=== PATIENT | female | born 1975 | race Caucasian/White ===

== ENCOUNTER 2017-08-24 08:17 | Emergency (ER) | payer BC, MEDICAID ==
[~2017-08-24] VITALS: Ht 154.9 cm; Wt 58.0 kg
[~2017-08-24 08:17] MED LIST: ATEN-100 PO; CLOT1CRE TOP; LETR2.5T PO; PANT40IN3 PO; SUMA25TA2 PO; TETA1INJ4 IM
[2017-08-24 08:30] VITALS: BP 138/73; PULSE 76; RESP 16; TEMP 98.8; O2SAT 99
--- NOTE | 2017-08-24 09:29 | PD ---
HPI Chief Complaint: Fall Time Seen by Provider: 09:19 Travel History International Travel<30 days: No Contact w/Intl Traveler<30days: No Traveled to known affect area: No History of Present Illness HPI Patient presents with complaints of right back and rib pain. States she fell from a 6 foot ladder onto her right side 3 days ago while in [place]. No evaluation at that time. States she did hit her head on the fall with questionable LOC. Primarily complains of pain in the right scapular region. Aggravated with inspiration or range of motion of the right shoulder. Denies pain in the shoulder. Pain is 8 out of 10. PFSH Past Medical History Anxiety: Yes Depression: Yes Cancer: Yes (breast) Chemotherapy: Yes Diminished Hearing: No GERD: Yes Implanted Vascular Access Dvce: Yes (right subclavin ) Immunizations Current: No Radiation Therapy: Yes Influenza Vaccination: No ?: Not Menopausal: No Tubal Ligation: Yes Past Surgical History Gynecologic Surgery: Yes (left breast lumpectomy r/t cancer) Hysterectomy: Yes Tympanostomy Tube: Yes (x3 both ears) Other Surgery: Yes (LEFT BREAST CA WITH LYMPH NODE INVOLVEMENT,BREAST AUGMENTATION) Social History Alcohol Use: Yes (2 DRINKS PER NIGHT) Tobacco Use: Yes (1 PPD) Substance Use: No Allergies-Medications (Allergen,Severity, Reaction): Coded Allergies: hydrocodone (Unverified Allergy, Unknown, itching, 08/24/17) Reported Meds & Prescriptions Reported Meds & Active Scripts Active No Active Prescriptions or Reported Medications Review of Systems General / Constitutional: No: Fever Eyes: No: Visual changes HENT: No: Headaches Cardiovascular: No: Chest Pain or Discomfort Respiratory: No: Shortness of Breath Gastrointestinal: No: Abdominal Pain Genitourinary: No: Dysuria Musculoskeletal: Positive: Pain Skin: No Rash Neurologic: No: Weakness Psychiatric: No: Depression Endocrine: No: Polydipsia Hematologic/Lymphatic: No: Easy Bruising Physical Exam Narrative GENERAL: Well-nourished, well-developed patient. SKIN: Focused skin assessment warm/dry. HEAD: Normocephalic. Examination of scalp reveals no hematoma Examination cervical spine reveals no midline tenderness bilateral paraspinous pain EYES: No scleral icterus. No injection or drainage. NECK: Supple, trachea midline. No JVD or lymphadenopathy. CARDIOVASCULAR: Regular rate and rhythm without murmurs, gallops, or rubs. RESPIRATORY: Breath sounds equal bilaterally. No accessory muscle use. Examination of thoracic spine reveals no midline tenderness right-sided pain with palpation in the scapular region. No erythema edema or ecchymosis No deformity of ribs GASTROINTESTINAL: Abdomen soft, non-tender, nondistended. MUSCULOSKELETAL: No cyanosis, or edema. BACK: Nontender without obvious deformity. No CVA tenderness. Data Data Last Documented VS Vital Signs Date Time Temp Pulse Resp B/P (MAP) Pulse Ox O2 Delivery O2 Flow Rate FiO2 08/24/17 08:30 98.8 76 16 138/73 (94) [address] Brain W/O Iv Contrast(Rout) (08/24/17 ) Ct Cerv Spine W/O Contrast (08/24/17 ) Ribs, Uni (W/O Exp Cxr) (08/24/17 ) Tramadol (Ultram) (08/24/17 09:45) MDM Medical Decision Making Medical Screen Exam Complete: Yes Emergency Medical Condition: Yes Differential Diagnosis Rib contusion, pneumothorax, rib fracture, concussion Narrative Course Assessment and plan discussed with patient and friend at bedside. Last 72 hours Impressions Ribs X-Ray 08/24/17 0000 Signed Impressions: Service Date/Time: Thursday, August 24, 2017 09:55 - CONCLUSION: Negative study with no evidence of rib fracture or pneumothorax. Francisco J Lewis MD Head CT 08/24/17 0000 Signed Impressions: Service Date/Time: Thursday, August 24, 2017 09:43 - CONCLUSION: Negative trauma CT Francisco J Lewis MD Cervical Spine CT 08/24/17 0000 Signed Impressions: Service Date/Time: Thursday, August 24, 2017 09:43 - CONCLUSION: Negative trauma CT. Francisco J Lewis MD Diagnosis Primary Impression: Rib contusion Qualified Codes: S20.211A - Contusion of right front wall of thorax, initial encounter Patient Instructions: General Instructions Additional Instructions: Encourage nonsteroidal anti-inflammatories warm heat gentle stretching and strengthening and massage. Follow-up with PCP. Return to the emergency room with any onset of new symptoms. Med/Other Pt SpecificInfo: Prescription(s) given Scripts Cyclobenzaprine (Flexeril) 10 Mg Tab 10 MG PO TID Y for PAIN 1 TO 10 AND/OR AGITATION, #20 TAB 0 Refills Prov: Atif,Remi R. MD 08/24/17 Tramadol (Ultram) 50 Mg Tab 50 MG PO Q4H Y for PAIN, #20 TAB 0 Refills Prov: Remi Srivastava MD 08/24/17 Disposition: 01 DISCHARGE HOME Condition: Good Remi Srivastava MD Aug 24, 2017 09:29
[2017-08-24] MEDS ORDERED: traMADol HCL 50 MG TAB PO ONE (09:45)
--- NOTE | 2017-08-24 10:01 | RADRPT ---
EXAM DATE/TIME: 08/24/2017 09:43 [facility] COMPARISON: No previous studies available for comparison. INDICATIONS : Fell from ladder, pain back of head on the right. RADIATION DOSE: 57.26 CTDIvol (mGy) MEDICAL HISTORY : Gastroesophageal reflux disease. Carcinoma, breast. Migraines SURGICAL HISTORY : Hysterectomy. lumpectomy, augmentation, port ENCOUNTER: Initial ACUITY: 1 day PAIN SCALE: 6/10 LOCATION: Right cranial TECHNIQUE: Multiple contiguous axial images were obtained of the head. Using automated exposure control and adj ustment of the mA and/or kV according to patient size, radiation dose was kept as low as reasonably a chievable to obtain optimal diagnostic quality images. DICOM format image data is available electro nically for review and comparison. FINDINGS: CEREBRUM: The ventricles are normal for age. No evidence of midline shift, mass lesion, hemorrhage or acute in farction. No extra-axial fluid collections are seen. POSTERIOR FOSSA: The cerebellum and brainstem are intact. The 4th ventricle is midline. The cerebellopontine angle i s unremarkable. EXTRACRANIAL: The visualized portion of the orbits is intact. SKULL: The calvaria is intact. No evidence of skull fracture. CONCLUSION: Negative trauma CT Francisco J Lewis MD on August 24, 2017 at 9:58 Board Certified Radiologist. This report was verified electronically.
--- NOTE | 2017-08-24 10:08 | RADRPT ---
EXAM DATE/TIME: 08/24/2017 09:43 [facility] COMPARISON: No previous studies available for comparison. INDICATIONS : Fell from ladder, painful neck. RADIATION DOSE: 25.43 CTDIvol (mGy) MEDICAL HISTORY : Gastroesophageal reflux disease. Carcinoma, breast. Migraines SURGICAL HISTORY : Hysterectomy. Lumpectomy, aumentation, port ENCOUNTER: Initial ACUITY: 2 days PAIN SCALE: 7/10 LOCATION: neck TECHNIQUE: Volumetric scanning of the cervical spine was performed. Multiplanar reconstructions i n the sagittal, coronal and oblique axial planes were performed. Using automated exposure control a nd adjustment of the mA and/or kV according to patient size, radiation dose was kept as low as reason ably achievable to obtain optimal diagnostic quality images. DICOM format image data is available e lectronically for review and comparison. FINDINGS: The sagittal reconstructions demonstrate normal alignment and normal prevertebral soft tissues. The d ens is intact and there is a normal atlantoaxial relationship. The axial images demonstrate that the vertebral bodies and posterior elements are intact. The soft ti ssues are within normal limits. There is no evidence of acute fracture or malalignment. CONCLUSION: Negative trauma CT. Francisco J Lewis MD on August 24, 2017 at 10:05 Board Certified Radiologist. This report was verified electronically.
--- NOTE | 2017-08-24 10:11 | RADRPT ---
EXAM DATE/TIME: 08/24/2017 09:55 [facility] COMPARISON: No previous studies available for comparison. INDICATIONS : Fell off ladder, has mid posterior chest pain MEDICAL HISTORY : Carcinoma, breast. Gastroesophageal reflux disease. Migraines SURGICAL HISTORY : lumpectomy, augmentation, port ENCOUNTER: Initial ACUITY: 3 days PAIN SCORE: 10/10 LOCATION: Right posterior mid chest FINDINGS: Multiple views of the right ribs were performed. There is no evidence of displaced fracture. No de structive lesions or areas of periosteal thickening are seen. Bilateral breast implants are present. There is a mild scoliosis. CONCLUSION: Negative study with no evidence of rib fracture or pneumothorax. Francisco J Lewis MD on August 24, 2017 at 10:06 Board Certified Radiologist. This report was verified electronically.
[2017-08-24] MEDS ORDERED: CYCL10TA PO (10:23)
[2017-08-24] MEDS ORDERED: TRAM50 PO (10:23)
== END 2017-08-24 10:28 | disposition home or self-care (01) ==
LOC: PHED 08:17
DX: S20.219A Contusion of unspecified front wall of thorax, initial encounter (principal); W11.XXXA Fall on and from ladder, initial encounter; F41.9 Anxiety disorder, unspecified; F32.9 Major depressive disorder, single episode, unspecified; K21.9 Gastro-esophageal reflux disease without esophagitis; F17.200 Nicotine dependence, unspecified, uncomplicated
CPT/HCPCS: 70450; 71100; 72125; 99284

== ENCOUNTER 2017-08-29 11:16 | Emergency (ER) | payer BC ==
[~2017-08-29] VITALS: Ht 154.9 cm; Wt 57.0 kg
[~2017-08-29 11:16] MED LIST changes: -ATEN-100 PO; -CLOT1CRE TOP; +CYCL10TA PO; -LETR2.5T PO; -PANT40IN3 PO; -SUMA25TA2 PO; -TETA1INJ4 IM; +TRAM50 PO
[2017-08-29 11:26] VITALS: BP 125/76; PULSE 100; RESP 16; TEMP 99.3; O2SAT 97
--- NOTE | 2017-08-29 12:40 | RADRPT ---
EXAM DATE/TIME: 08/29/2017 12:18 [facility] COMPARISON: RIBS RIGHT (W/O PA CXR), August 24, 2017, 9:55. INDICATIONS : Pain in the center of back across posterior right ribs. Patient originally came in on August 24. Patie nt felt pop yesterday and pain has continued. MEDICAL HISTORY : Gastroesophageal reflux disease. Carcinoma, breast. Migraines SURGICAL HISTORY : Hysterectomy. Lumpectomy, aumentation, port ENCOUNTER: Initial ACUITY: 4 - 6 days PAIN SCORE: 10/10 LOCATION: Right Ribs FINDINGS: A single view of the chest demonstrates the lungs to be symmetrically aerated without evidence of mas s, infiltrate or effusion. The cardiomediastinal contours are unremarkable. Osseous structures are intact. There is increased opacity the lung bases from overlying breast implants. CONCLUSION: No acute disease. Francisco J Lewis MD on August 29, 2017 at 12:38 Board Certified Radiologist. This report was verified electronically.
[2017-08-29] MEDS ORDERED: ROBA750T PO (13:08)
[2017-08-29] MEDS ORDERED: KETO10 PO (13:08)
--- NOTE | 2017-08-29 13:09 | PD ---
HPI Chief Complaint: Musculoskeletal Complaint Time Seen by Provider: 12:09 Travel History International Travel<30 days: No Contact w/Intl Traveler<30days: No Traveled to known affect area: No History of Present Illness HPI 41-year-old female here with right posterior rib pain. She was originally seen several weeks ago and diagnosed with rib contusion. She reports she was lifting a heavy box today and felt a popping sensation in her right posterior ribs. Symptom severity is moderate. Pain with deep inspiration, twisting of the torso, palpation of the ribs. No respiratory distress. No alleviating factors. PFSH Past Medical History Anxiety: Yes Depression: Yes Cancer: Yes (breast) Chemotherapy: Yes Diminished Hearing: No GERD: Yes Implanted Vascular Access Dvce: Yes (right subclavin ) Immunizations Current: No Radiation Therapy: Yes Influenza Vaccination: No ?: Not Menopausal: No Tubal Ligation: Yes Past Surgical History Gynecologic Surgery: Yes (left breast lumpectomy r/t cancer) Hysterectomy: Yes Tympanostomy Tube: Yes (x3 both ears) Other Surgery: Yes (LEFT BREAST CA WITH LYMPH NODE INVOLVEMENT,BREAST AUGMENTATION) Social History Alcohol Use: Yes (2 DRINKS PER NIGHT) Tobacco Use: Yes (1 PPD) Substance Use: No Allergies-Medications (Allergen,Severity, Reaction): Coded Allergies: hydrocodone (Unverified Allergy, Unknown, itching, 08/29/17) Reported Meds & Prescriptions Reported Meds & Active Scripts Active Flexeril (Cyclobenzaprine HCl) 10 Mg Tab 10 Mg PO TID PRN Ultram (Tramadol HCl) 50 Mg Tab 50 Mg PO Q4H PRN Review of Systems Except as stated in HPI: all other systems reviewed are Neg General / Constitutional: No: Fever Eyes: No: Visual changes HENT: No: Headaches Cardiovascular: No: Chest Pain or Discomfort Respiratory: No: Shortness of Breath Gastrointestinal: No: Abdominal Pain Genitourinary: No: Dysuria Physical Exam Narrative GENERAL: Alert and well-appearing 41-year-old female SKIN: Warm and dry. HEAD: Normocephalic. EYES: No injection or drainage. NECK: Supple, trachea midline. CARDIOVASCULAR: Regular rate and rhythm without murmurs, gallops, or rubs. +TTP R posterior ribs. No crepitus felt. RESPIRATORY: Breath sounds equal bilaterally. No accessory muscle use. No respiratory distress. GASTROINTESTINAL: Abdomen soft, non-tender, nondistended. MUSCULOSKELETAL: No cyanosis, or edema. BACK: Nontender without obvious deformity. No CVA tenderness. Data Data Last Documented VS Vital Signs Date Time Temp Pulse Resp B/P (MAP) Pulse Ox O2 Delivery O2 Flow Rate FiO2 08/29/17 11:26 99.3 100 16 125/76 (92) 97 Orders Orders Chest, Single Ap (08/29/17 ) [facility] Medical Decision Making Medical Screen Exam Complete: Yes Emergency Medical Condition: Yes Differential Diagnosis Rib fracture, pneumothorax, thoracic strain Narrative Course 41-year-old female here with right posterior rib pain after lifting a heavy box today. She has good aeration. No respiratory distress. No palpable fracture. X-rays negative for pneumothorax. She was given a shot of Toradol. Diagnosis Primary Impression: Strain of thoracic region Qualified Codes: S29.019A - Strain of muscle and tendon of unspecified wall of thorax, initial encounter Referrals: Primary Care Physician Additional Instructions: Medication as directed. No heavy lifting or strenuous activity Follow-up with your primary doctor. Return if you have new or worsening symptoms. Scripts Methocarbamol (Robaxin) 750 Mg Tab 750 MG PO QID for Muscle Spasm, #15 TAB 0 Refills Prov: Mira Sloan 08/29/17 Ketorolac (Ketorolac) 10 Mg Tab 10 MG PO Q6HR Y for PAIN for 5 Days, TAB 0 Refills Prov: Mira Sloan 08/29/17 Disposition: 01 DISCHARGE HOME Condition: Stable Mira Sloan Aug 29, 2017 13:09
[2017-08-29] MEDS ORDERED: KETOROLAC TROMETHAMINE 60 MG/2 ML (IM) VIAL IM ONE (13:15)
== END 2017-08-29 13:39 | disposition home or self-care (01) ==
LOC: PHEFT 11:16
DX: S29.019A Strain of muscle and tendon of unspecified wall of thorax, initial encounter (principal); F41.9 Anxiety disorder, unspecified; F32.9 Major depressive disorder, single episode, unspecified; K21.9 Gastro-esophageal reflux disease without esophagitis; F17.200 Nicotine dependence, unspecified, uncomplicated; X50.0XXA Overexertion from strenuous movement or load, initial encounter; Z88.5 Allergy status to narcotic agent; Z79.899 Other long term (current) drug therapy
CPT/HCPCS: 71045; 96372; 99283; J1885